=== PATIENT | female | born 1930 | race Caucasian/White ===

== ENCOUNTER 2017-06-23 09:41 | Inpatient (IN) | payer MEDICARE, OTHER ==
[2017-06-23 10:29] LABS: Urine Appearance Turbid; Urine Bacteria 3+; Urine Bilirubin Negative (NEGATIVE); Urine Blood 50 /ul (NEGATIVE); Urine Color Dark Yellow; Urine Ketone Negative (NEGATIVE); Urine Nitrite Positive (NEGATIVE); Urine Protein 30 mg/dL (NEGATIVE); Urine RBC >50 /hpf (0-5); Urine Urobilinogen Normal (NORMAL); Urine WBC >50 /hpf (0-5)
[2017-06-23 10:31] LABS: Hematocrit 39.5 % (37.0-47.0); Hemoglobin 13.4 gm/dL (12.5-16.0); Mean Cell Volume 91.4 fl (78-100); Mean Corpuscular Hgb Conc 33.9 g/dl (32-36); Mean Platelet Volume 9.8 fl (6.0-9.5); Neutrophil # 15.6 K/mm3 (1.3-6.0); Neutrophil % 82.8 % (42-75.0); Platelet Count 206 K/mm3 (150-450); Red Blood Count 4.32 M/mm3 (4.2-5.4); Red Cell Distribution Width 12.7 % (11.5-14.0); White Blood Count 18.8 K/mm3 (4.0-10.5)
--- NOTE | 2017-06-23 10:32 | ERNOTE ---
Neuro HPI ER Record Date of Service: 06/23/17 Presenting Symptoms: confusion Time Seen by Provider: 06/23/17 09:55 Source: patient, family Exam Limitations: dementia Immunizations: IMMUNIZATION HX Immunizations Up to Date Yes History of Influenza Vaccine Yes Hx Pneumococcal Vaccination Yes Allergies/Adverse Reactions: Allergies Allergy/AdvReac Type Severity Reaction Status Date / Time sulfur dioxide Allergy Verified 06/23/17 09:54 Home Medications: HOME MEDICATIONS Amlodipine Besylate 10 mg PO DAILY 06/23/17 [Last Taken Unknown] Atenolol [Tenormin] 100 mg PO DAILY 06/23/17 [Last Taken Unknown] Atorvastatin Calcium [Lipitor] 10 mg PO DAILY 06/23/17 [Last Taken Unknown] Levothyroxine Sodium [Synthroid] 112 mcg PO DAILY 06/23/17 [Last Taken Unknown] Memantine HCl [Namenda Xr] 28 mg PO DAILY 06/23/17 [Last Taken Unknown] - History of Present Illness Narrative: Pt. comes in with son and c/o confusion since 0600 this morning. Pt. son states that pt. is normally up at 0500 in the morning and this morning he went to meet her for coffee at 0600 and pt. was not awake and when her demurrage agent showed up they noted that pt. was more forgetful than usual and she was getting irritated with them and was unsure of who they were. Son also notes that she had a temp of 102 which he treated with Ibuprofen prior to arrival. Son states that pt. has dementia but is usually able to remember her family and with help is able to complete her daily activities. Pt. denies any pain or symptoms. Other family notes that she has been a little more lethargic for 4 days. Review of Systems - Review of Systems Constitutional: Present: fever, weakness, fatigue, malaise EYE: Present: no symptoms reported ENT: Present: no symptoms reported Respiratory: Present: no symptoms reported. Absent: shortness of breath, cough , wheezing Cardiology: Present: no symptoms reported. Absent: chest pain, palpitations, edema Gastrointestinal/Abdominal: Present: no symptoms reported. Absent: nausea, vomiting, diarrhea Genitourinary: Present: no symptoms reported. Absent: frequency, decreased urinary output Musculoskeletal: Present: no symptoms reported. Absent: back pain, joint pain Skin: Present: no symptoms reported Neurological: Present: other - forgetful increased from baseline. Absent: anxiety, depressed, headache, dizziness/light-headedness, weakness, numbness, tingling All Other Systems: All systems neg except as marked - Patient's Past Medical History Patient History - Medical: No pertinent hx Patient History - Cardiac/Respiratory: No pertinent hx Patient History - Cancer: Breast Patient History - Surgical Procedures: Appendectomy, Cholecystectomy, Other Patient History - Other: None LMP (females 10-50): post - Family History Mother Family History - Medical: Family History - Cardiac/Respiratory: Hypertension Father Family History - Medical: Family History - Cardiac/Respiratory: Myocardial Infarction - Social History Living Situations: home Abuse History: No History of abuse Psych History: No pertinent hx Smoking Status: Never smoker Alcohol Use: none Drug Use: none - Immunizations Immunizations Up to Date: Yes Hx Pneumococcal Vaccination: Yes History of Influenza Vaccine: Yes Physical Exam - Physical Exam General Appearance: Present: wd/wn, alert, no apparent distress Head Exam: Present: normal inspection, no evidence of injury Eye Exam: Normal inspection: bilateral, PERRL: bilateral, EOMI: bilateral Ears, Nose, Throat: Present: normal ENT inspection, normal pharynx Neck: Present: normal inspection, nontender. Absent: lymphadenopathy (R), lymphadenopathy (L) Respiratory: Present: no respiratory distress, normal breath sounds, no accessory muscle use, chest nontender, lungs clear Cardiovascular/Chest: Present: regular rate, rhythm, no murmur, normal peripheral pulses Gastrointestinal/Abdominal: Present: normal bowel sounds, nondistended, soft, no organomegaly, tenderness - suprapubic Back Exam: Present: normal inspection, normal range of motion, no CVA tenderness , no vertebral tenderness Extremity Exam: Present: normal inspection, non-tender, normal range of motion, no edema Neurological Exam: Present: alert, normal mood/affect, no motor/sensory deficits , disoriented to time, other - knows president but is unsure of date or time. Absent: motor weakness, disoriented to person, disoriented to place, disoriented to situation Ty Coma Scale - Assess Eye Opening: Spontaneous Motor: Obeys Commands Verbal: Confused - Total Coma Scale Total: 14 ED Progress - Results and Orders Patient's Lab Results:: I have reviewed the patient's lab results. - Vital Signs Patient's Vital Signs:: I have reviewed the patient's vital signs. Vital Signs: Vital Signs 06/23/17 09:50 Temperature 35.5 C L Pulse Rate 76 Respiratory 16 Rate Blood Pressure 111/53 O2 Sat by Pulse 95 Oximetry - Progress/Reassessment Chief Complaint: Altered Mental Status Departure Clinical Impression: Sepsis Qualifiers: Sepsis type: sepsis due to unspecified organism Qualified Code(s): A41.9 - Sepsis, unspecified organism UTI (urinary tract infection) Qualifiers: Urinary tract infection type: acute cystitis Hematuria presence: with hematuria Qualified Code(s): N30.01 - Acute cystitis with hematuria - Departure Disposition: [facility] Condition: Serious
[2017-06-23 10:43] LABS: Albumin * 3.1 gm/dl (3.4-5.0); Anion Gap 19.1 mmol/L (6.8-13.8); BUN/Creatinine Ratio 12.6 (9.0-21.6); Bilirubin, Total 1.4 mg/dL (0.0-1.1); Ca. Corrected For Albumin 9.1 mg/dL (8.4-10.2); Calcium * 8.7 mg/dL (7.9-10.9); Carbon Dioxide 19.4 mmol/L (24-32.6); Potassium 3.5 mmol/L (3.4-4.6); Total Protein 7.6 gm/dL (6.2-8.2)
[2017-06-23] MEDS: SODIUM CHLORIDE IV ONE ×2 (11:11→15:29)
[2017-06-23] MEDS ORDERED: PANTOPRAZOLE SODIUM 40 MG in NORMAL SALINE 100 ML IV SCH (12:00)
--- NOTE | 2017-06-23 13:24 | HP ---
Chief Complaint - Chief Complaint Date of Service: 06/23/17 Time of Service: 13:23 Chief Complaint: Patient was more confused when son went to drink coffee with her at 6 AM this morning. Temp 102 Fahrenheit in ER. Patient unable to complain[ H/O obtained from ER records]. History of Present Illness: Patient is a 87-year-old WF with a history of HTN, HLD, hypothyroidism, LT breast CA [S/P modified radical mastectomy 04/2016] who is brought to the ER by her son due to increasing confusion, a temp of 102F [ Rxed by ibuprofen] and decreased oral intake for the last few days. Significant labs in the ER : WBC 18.8, BUN/CR 21/1.67[ BUN/CR 13/1.05 on ]. Complained of decreased appetite, denies nausea, vomiting, abdominal pain, back pain, fevers/chills. - Patient's Past Medical History Additional info: PAST MEDICAL HISTORY: HTN, hyperlipidemia, osteopenia, LT breast cancer [ stage (IIIA T4, N0, M0) hormone receptor positive, HER-2 positive. RT shoulder pain. 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 Additional Info: PAST SURGICAL HISTORY: 1. Tonsillectomy 1940 2. Appendectomy 1944. 3. Modified radical mastectomy LT breast 04/28/2016. Patient History - Other: None LMP (females 10-50): post - Family History Mother Family History - Medical: - 70s, obesity, HTN Father Family History - Medical: - 60s,[place] - Social History Living Situations: alone Abuse History: No History of abuse Psych History: No pertinent hx Smoking Status: Never smoker Have you smoked in the past 12 months: No Alcohol Use: none Drug Use: none - Immunizations Immunizations Up to Date: Yes Hx Pneumococcal Vaccination: Yes History of Influenza Vaccine: Yes Review Of Systems (GEN) - Review of Systems Generalized/Overall Review: Present: Weakness, Fever, Fatigue Respiratory: Absent: Cough, Shortness of Breath Cardiac: Absent: Chest Pain, Palpitations Abdominal: Absent: Nausea, Vomiting Immunizations: IMMUNIZATION HX Immunizations Up to Date Yes History of Influenza Vaccine Yes Hx Pneumococcal Vaccination Yes Allergies/Adverse Reactions: Allergies Allergy/AdvReac Type Severity Reaction Status Date / Time sulfur dioxide Allergy Verified 06/23/17 15:59 Home Medications: HOME MEDICATIONS Amlodipine Besylate 10 mg PO DAILY 06/23/17 [Last Taken Unknown] Atenolol [Tenormin] 100 mg PO HS 06/23/17 [Last Taken Unknown] Atorvastatin Calcium [Lipitor] 10 mg PO DAILY 06/23/17 [Last Taken Unknown] Levothyroxine Sodium [Synthroid] 112 mcg PO DAILY 06/23/17 [Last Taken Unknown] Memantine HCl [Namenda Xr] 28 mg PO DAILY 06/23/17 [Last Taken Unknown] Cholecalciferol (Vitamin D3) [Vitamin D] 2,000 unit PO DAILY #100 capsule [Last Taken Unknown] Ciprofloxacin HCl [Cipro] 500 mg PO BID #6 tablet 06/27/17 [Last Taken Unknown] Exam - Exam Vital Signs: Vital Signs - Last Taken Temp 36.2 C L 06/23/17 12:18 Pulse 62 06/23/17 12:18 Resp 16 06/23/17 12:18 BP 109/52 06/23/17 12:18 Pulse Ox 95 06/23/17 12:18 Constitutional: Present: Elderly, Looks Younger than stated age - alert, oriented 1, in no acute distress. ENT Exam: Present: hearing grossly normal Eye Exam: bilateral eye: PERRL, EOMI Neck: Present: normal inspection, trachea midline Back Exam: Present: no CVA tenderness Breasts: Present: Exam deferred Respiratory: Present: lungs clear, normal breath sounds. Absent: no accessory muscle use Cardiovascular/Chest: Present: regular rate, rhythm. Absent: tachycardia Abdomen: Present: Normal bowel sounds, soft, nontender, nondistended Extremity: Present: normal inspection, no pedal edema Skin Exam: Present: normal color, warm/dry Appearance: Present: appropriate appearance, neat, impaired recent memory, impaired remote memory Eye contact: Present: cooperative, good eye contact, normal speech Diagnostic Studies: 06/23/17 10:13 BC 18.8 H Hgb 13.4 Hct 39.5 Plt Count 206 06/23/17 10:20 Plasma Sodium 135 Potassium 3.5 Chloride 99 Carbon Dioxide 19.4 L BUN 21 D Creatinine 1.67 H D Est GFR (Non-Af Amer) 31 L D Calcium Adj for Albumin 9.1 Total Bilirubin 1.4 H AST 19 ALT 16 L Alkaline Phosphatase 82 Total Protein 7.6 Albumin 3.1 L 06/23/17 06/23/17 10:20 13:45 Lactic Acid, Venous 2.5 H* 1.8 06/23/17 10:00 Urine Color Dark yellow Urine Appearance Turbid Ur Specific [place] 1.010 Urine Protein 30 H Urine Blood 50 H Urine Nitrate Positive H Ur Leukocyte Esterase 500 H Urine RBC >50 H Urine WBC >50 H Ur Epithelial Cells Food Cashier Urine Bacteria 3+ H Assessment/Plan - Narrative Narrative: 1. Probable sepsis due to UTI. Started on CTX 1 gm IV daily. Plugged into QSOFA criteria- patient has a 6% chance of sepsis[ due to hypotension and increasing confusion]. WBC 18.8, lactic acid 2.5. Check labs in a.m. Blood cultures done and pending. Patient given IV fluids per sepsis protocol. 2. Dehydration: BUN/CR 13/1.25 with a GFR of 53 ml/min.[06/15/17] and now at 21/1.67 with a GFR of 31 ml/min. Continue IV fluids at NS 100 mL / hr and check CMP on 06/24/17. 3. Hypertension: Continue amlodipine 10 mg in a.m. and atenolol 100 mg in p.m. may consider giving 50 mg in p.m. today if blood pressure is low. 4. Chronic medical conditions: Other chronic medical conditions including hypothyroidism, dementia most likely secondary to Alzheimer's type, LT breast cancer[ s/p modified radical mastectomy ],osteopenia, reviewed in stable.
[2017-06-23] MEDS: NORMAL SALINE 1,000 ML IV PRN (18:00)
[2017-06-23] MEDS ORDERED: ATENOLOL 50 MG TABLET PO SCH (21:00)
[2017-06-23] MEDS: ATENOLOL 50 MG TABLET PO SCH (21:45)
[2017-06-24 05:55] LABS: Hematocrit 35.1 % (37.0-47.0); Hemoglobin 11.9 gm/dL (12.5-16.0); Mean Cell Volume 92.6 fl (78-100); Mean Corpuscular Hemoglobin 31.4 pg (27-31); Mean Corpuscular Hgb Conc 33.9 g/dl (32-36); Mean Platelet Volume 10.2 fl (6.0-9.5); Neutrophil # 10.8 K/mm3 (1.3-6.0); Neutrophil % 78.9 % (42-75.0); Platelet Count 172 K/mm3 (150-450); Red Blood Count 3.79 M/mm3 (4.2-5.4); Red Cell Distribution Width 12.8 % (11.5-14.0); White Blood Count 13.7 K/mm3 (4.0-10.5)
[2017-06-24 06:14] LABS: Albumin * 2.5 gm/dl (3.4-5.0); Anion Gap 14.4 mmol/L (6.8-13.8); BUN/Creatinine Ratio 12.4 (9.0-21.6); Bilirubin, Total 0.8 mg/dL (0.0-1.1); Ca. Corrected For Albumin 9.2 mg/dL (8.4-10.2); Calcium * 8.3 mg/dL (7.9-10.9); Carbon Dioxide 21.9 mmol/L (24-32.6); Potassium 3.3 mmol/L (3.4-4.6); Total Protein 6.7 gm/dL (6.2-8.2)
[2017-06-24] MEDS: NORMAL SALINE 1,000 ML IV PRN ×2 (08:34→23:21)
[2017-06-24] MEDS: amLODIPine BESYLATE 10 MG TABLET PO SCH (08:35)
[2017-06-24] MEDS: LEVOTHYROXINE SODIUM 112 MCG TABLET PO SCH (08:35)
[2017-06-24] MEDS: ROSUVASTATIN CALCIUM 10 MG TABLET PO SCH (08:35)
[2017-06-24] MEDS ORDERED: POTASSIUM CHLORIDE 20 MEQ TABLET.SA PO ONE (10:42)
[2017-06-24] MEDS ORDERED: FLU VACC QS2017-18(6MOS UP)/PF 60 MCG/0.5 ML SYRINGE IM ONE (11:00)
[2017-06-24] MEDS: MEMANTINE HCL 28 MG PO SCH (15:46)
[2017-06-24] MEDS ORDERED: ACETAMINOPHEN 325 MG TABLET PO PRN (16:57)
[2017-06-24] MEDS ORDERED: ACETAMINOPHEN 325 MG TABLET ONE (17:04)
[2017-06-24] MEDS: ATENOLOL 50 MG TABLET PO SCH (20:02)
[2017-06-25] MEDS: LEVOTHYROXINE SODIUM 112 MCG TABLET PO SCH (07:43)
[2017-06-25] MEDS: amLODIPine BESYLATE 10 MG TABLET PO SCH (08:11)
[2017-06-25] MEDS: MEMANTINE HCL 28 MG PO SCH (08:13)
[2017-06-25] MEDS: ROSUVASTATIN CALCIUM 10 MG TABLET PO SCH (08:14)
[2017-06-25] MEDS: NORMAL SALINE 1,000 ML IV PRN (16:09)
[2017-06-25] MEDS: ATENOLOL 50 MG TABLET PO SCH (20:23)
[2017-06-26] MEDS: NORMAL SALINE 1,000 ML IV PRN (04:03)
[2017-06-26 05:58] LABS: Hematocrit 33.9 % (37.0-47.0); Hemoglobin 11.4 gm/dL (12.5-16.0); Mean Cell Volume 90.6 fl (78-100); Mean Corpuscular Hemoglobin 30.5 pg (27-31); Mean Corpuscular Hgb Conc 33.6 g/dl (32-36); Mean Platelet Volume 10.1 fl (6.0-9.5); Platelet Count 221 K/mm3 (150-450); Red Blood Count 3.74 M/mm3 (4.2-5.4); Red Cell Distribution Width 12.6 % (11.5-14.0); White Blood Count 9.1 K/mm3 (4.0-10.5)
[2017-06-26 06:03] LABS: Total Cells Counted 100
[2017-06-26 06:06] LABS: Anion Gap 14.6 mmol/L (6.8-13.8); BUN/Creatinine Ratio 10.2 (9.0-21.6); Calcium * 8.3 mg/dL (7.9-10.9); Carbon Dioxide 20.6 mmol/L (24-32.6); Potassium 3.2 mmol/L (3.4-4.6)
[2017-06-26 06:24] LABS: Basophil 1 % (0-1); Eosinophil 1 % (0-3); Immature Granulocyte 2 (0-1); Lymphocyte 27 % (20-51); Monocyte 4 % (0-9); Neutrophil 65 % (42-75); Neutrophil # 5.9 K/mm3 (1.3-6.0)
[2017-06-26 06:25] LABS: Platelet Estimate Normal (NORMAL); RBC Morphology Normal (NORMAL)
[2017-06-26] MEDS ORDERED: POTASSIUM CHLORIDE 20 MEQ TABLET.SA PO ONE (06:38)
[2017-06-26] MEDS: LEVOTHYROXINE SODIUM 112 MCG TABLET PO SCH (07:37)
[2017-06-26] MEDS: POTASSIUM CHLORIDE 10 MEQ in NORMAL SALINE 1,000 ML IV SCH ×2 (07:40→22:40)
[2017-06-26] MEDS: MEMANTINE HCL 28 MG PO SCH (09:30)
[2017-06-26] MEDS: ROSUVASTATIN CALCIUM 10 MG TABLET PO SCH (09:30)
[2017-06-26] MEDS: amLODIPine BESYLATE 10 MG TABLET PO SCH (09:30)
--- NOTE | 2017-06-26 15:34 | PN ---
Subjective - Date and Time Seen Date: 06/24/17 Time: 10:45 Subjective Narrative: Patient seen and examined at bedside. No acute issues overnight. Patient denies any new issues or concerns this AM. Patient's son is present at bedside and states that his mother is much improved since admission. Objective - Review of Systems Generalized/Overall Review: Reports: Weakness, Fatigue EENTM: Reports: No Symptoms Reported Respiratory: Reports: No Symptoms Reported Cardiac: Reports: No Symptoms Reported Abdominal: Reports: No Symptoms Reported Genitourinary Symptoms: Reports: No Symptoms Reported Musculoskeletal Complaints: Reports: No Symptoms Reported Neurological: Reports: No Symptoms Reported Skin: Reports: No Symptoms Reported Endocrine: Reports: No Symptoms Reported Misc: All systems neg except as marked - Vitals Vitals: Last Vital Signs Temp 36.5 C 06/26/17 14:36 Pulse 80 06/26/17 14:36 Resp 20 06/26/17 14:36 BP 137/65 06/26/17 14:36 Pulse Ox 97 06/26/17 14:36 - Abnormal Lab Findings Abnormal Lab Findings: Abnormal Lab Results 06/26/17 06/26/17 Range/Units 05:45 05:45 RBC 3.74 L (4.2-5.4) M/mm3 Hgb 11.4 L (12.5-16.0) gm/dL Hct 33.9 L (37.0-47.0) % MPV 10.1 H (6.0-9.5) fl Immature Granulocytes 2 H (0-1) Potassium 3.2 L (3.4-4.6) mmol/L Chloride 110 H (97-106) mmol/L Carbon Dioxide 20.6 L (24-32.6) mmol/L Anion Gap 14.6 H (6.8-13.8) mmol/L - Exam Constitutional: Present: Alert, Cooperative, No distress, Elderly ENT Exam: Present: moist mucous membranes Respiratory: Present: lungs clear, normal breath sounds, no respiratory distress , no accessory muscle use Cardiovascular/Chest: Present: regular rate, rhythm, systolic murmur Abdomen: Present: soft, nontender, nondistended Extremity: Present: normal inspection Skin Exam: Present: normal color, warm/dry, no cyanosis Neurologic: Present: alert, normal mood/affect Assessment/Plan Plan Narrative: Patient admitted with sepsis secondary to UTI. She was also found to be bacteremic with final C&S pending. Urine culture growing E.Coli which is sensitive to Rocephin so we will continue Rocephin for now. Adjust antibiotics if necessary based on final blood culture C&S report. - Problems/Diagnosis (1) Bacteremia Problem: Acute (2) Sepsis Problem: Acute Qualifiers: Sepsis type: Escherichia coli Qualified Code(s): A41.51 - Sepsis due to Escherichia coli [E. coli] (3) UTI (urinary tract infection) Problem: Acute Qualifiers: Urinary tract infection type: acute cystitis Hematuria presence: with hematuria Qualified Code(s): N30.01 - Acute cystitis with hematuria
--- NOTE | 2017-06-26 15:35 | PN ---
Subjective - Date and Time Seen Date: 06/25/17 Time: 12:50 Subjective Narrative: Patient seen and examined at bedside. No acute issues overnight. Patient denies any new issues or concerns this AM. Patient's friend present at bedside this AM. Objective - Review of Systems Generalized/Overall Review: Reports: Weakness, Fatigue EENTM: Reports: No Symptoms Reported Respiratory: Reports: No Symptoms Reported Cardiac: Reports: No Symptoms Reported Abdominal: Reports: No Symptoms Reported Genitourinary Symptoms: Reports: No Symptoms Reported Musculoskeletal Complaints: Reports: No Symptoms Reported Neurological: Reports: No Symptoms Reported Skin: Reports: No Symptoms Reported Endocrine: Reports: No Symptoms Reported Misc: All systems neg except as marked - Vitals Vitals: Last Vital Signs Temp 36.5 C 06/26/17 14:36 Pulse 80 06/26/17 14:36 Resp 20 06/26/17 14:36 BP 137/65 06/26/17 14:36 Pulse Ox 97 06/26/17 14:36 - Abnormal Lab Findings Abnormal Lab Findings: Abnormal Lab Results 06/26/17 06/26/17 Range/Units 05:45 05:45 RBC 3.74 L (4.2-5.4) M/mm3 Hgb 11.4 L (12.5-16.0) gm/dL Hct 33.9 L (37.0-47.0) % MPV 10.1 H (6.0-9.5) fl Immature Granulocytes 2 H (0-1) Potassium 3.2 L (3.4-4.6) mmol/L Chloride 110 H (97-106) mmol/L Carbon Dioxide 20.6 L (24-32.6) mmol/L Anion Gap 14.6 H (6.8-13.8) mmol/L - Exam Constitutional: Present: Alert, Cooperative, No distress ENT Exam: Present: moist mucous membranes Respiratory: Present: lungs clear, normal breath sounds, no respiratory distress , no accessory muscle use Cardiovascular/Chest: Present: regular rate, rhythm, systolic murmur Abdomen: Present: soft, nontender, nondistended Skin Exam: Present: normal color, warm/dry Assessment/Plan Plan Narrative: Patient admitted with sepsis secondary to UTI. She was also found to be bacteremic with final C&S pending. Urine culture growing E.Coli which is sensitive to Rocephin so we will continue Rocephin for now. Adjust antibiotics if necessary based on final blood culture C&S report. - Problems/Diagnosis (1) Bacteremia Problem: Acute (2) Sepsis Problem: Acute Qualifiers: Sepsis type: Escherichia coli Qualified Code(s): A41.51 - Sepsis due to Escherichia coli [E. coli] (3) UTI (urinary tract infection) Problem: Acute Qualifiers: Urinary tract infection type: acute cystitis Hematuria presence: with hematuria Qualified Code(s): N30.01 - Acute cystitis with hematuria
--- NOTE | 2017-06-26 19:06 | PN ---
Subjective - Date and Time Seen Date: 06/26/17 Time: 18:59 Subjective Narrative: patient seen at 8.30 am at bedside. ON O2 at 2L as her sats dropped to 86% during night. denies sob, chest pain. had low grade temp for the last two days. Objective - Review of Systems Generalized/Overall Review: Denies: Weakness, Fatigue Respiratory: Denies: Cough, Shortness of Breath Cardiac: Denies: Chest Pain, Edema Abdominal: Denies: Nausea, Vomiting - Vitals Vitals: Vital Signs Temp 36.4 C L 06/26/17 18:00 Pulse 81 06/26/17 18:00 Resp 18 06/26/17 18:00 BP 146/62 06/26/17 18:00 Pulse Ox 97 06/26/17 18:00 - Abnormal Lab Findings Abnormal Lab Findings: Laboratory Tests 06/26/17 05:45 WBC 9.1 D Hgb 11.4 L Hct 33.9 L Plt Count 221 Neutrophils % (Manual) 65 Lymphocytes % (Manual) 27 06/26/17 05:45 Plasma Sodium 142 Potassium 3.2 L Chloride 110 H Carbon Dioxide 20.6 L BUN 9 Creatinine 0.88 Est GFR (Non-Af Amer) 65 D BUN/Creatinine Ratio 10.2 Calcium 8.3 Microbiology 06/23/17 10:20 Blood Blood Culture - Final Escherichia Coli 06/23/17 10:00 Urine,Voided Urine Culture - Final Escherichia Coli - Exam Constitutional: Present: Elderly, Obese - alert and oriented x 1 ENT Exam: Present: hearing grossly normal Neck: Present: normal inspection, trachea midline Breasts: Present: Exam deferred Respiratory: Present: lungs clear, normal breath sounds, no accessory muscle use Cardiovascular/Chest: Present: regular rate, rhythm, no chest tenderness. Absent: tachycardia Abdomen: Present: Normal bowel sounds, soft, nontender Extremity: Present: non-tender, normal inspection, no pedal edema Skin Exam: Present: warm/dry, pallor Appearance: Present: impaired recent memory, impaired remote memory. Absent: appropriate insight Eye contact: Present: cooperative, good eye contact Assessment/Plan Plan Narrative: 1. Sepsis due to Ecoli in urine and Blood: Patient had hypotension with systolic below 100 mm Hg, increased confusion [ baseline dementia]; however was not admitted ICU and did not have an increase in R.R. Transient elevation in LFTs [which resolved] most likely secondary to hypotension. Currently being treated with ceftriaxone 1 g IV daily. Improvement seen in BUN/CR due to IV fluids. D/C IV fluids today. 2. Bacteremia secondary to Escherichia coli. Blood culture positive for Escherichia coli. Sensitive to a variety of antibiotics. UCS positive for Escherichia coli. Continue ceftriaxone till 2016. 3. Chronic medical problems: HTN [on amlodipine 10 mg in a.m. and atenolol 100 mg in p.m.], hypothyroidism, hyperlipidemia, dementia secondary to Alzheimer's type, LT breast cancer [S/P modified radical mastectomy on 04/28/2016] reviewed and stable. 4. Discharge planning: Patient will receive ceftriaxone IV on 06/27/17 and will be discharged on oral antibiotics for 3 more days. Discussed with family[son GELY was present]. Voices understanding.
[2017-06-26] MEDS ORDERED: POTASSIUM CHLORIDE 20 MEQ TABLET.SA ONE (22:42)
[2017-06-26] MEDS: POTASSIUM CHLORIDE 20 MEQ TABLET.SA PO SCH (22:45)
[2017-06-26] MEDS: ATENOLOL 50 MG TABLET PO SCH (22:47)
[2017-06-27] MEDS ORDERED: POTASSIUM CHLORIDE 10 MEQ TABLET.SA ONE (02:28)
[2017-06-27] MEDS: POTASSIUM CHLORIDE 20 MEQ TABLET.SA PO SCH (02:32)
[2017-06-27 06:31] LABS: Hematocrit 32.6 % (37.0-47.0); Hemoglobin 11.2 gm/dL (12.5-16.0); Mean Cell Volume 90.6 fl (78-100); Mean Corpuscular Hemoglobin 31.1 pg (27-31); Mean Corpuscular Hgb Conc 34.4 g/dl (32-36); Platelet Count 245 K/mm3 (150-450); Red Cell Distribution Width 12.6 % (11.5-14.0); White Blood Count 8.3 K/mm3 (4.0-10.5)
[2017-06-27 06:32] LABS: Total Cells Counted 100
[2017-06-27 06:36] LABS: Atypical (Reactive) Lymph 4 % (0-2); Band 2 % (0-2.0); Eosinophil 2 % (0-3); Lymphocyte 24 % (20-51); Monocyte 1 % (0-9); Neutrophil 67 % (42-75); Neutrophil # 5.6 K/mm3 (1.3-6.0)
[2017-06-27 06:37] LABS: Platelet Estimate Normal (NORMAL)
[2017-06-27 06:38] LABS: RBC Morphology Normal (NORMAL)
[2017-06-27 07:00] LABS: Anion Gap 14.7 mmol/L (6.8-13.8); Calcium * 8.4 mg/dL (7.9-10.9); Carbon Dioxide 21.4 mmol/L (24-32.6); Potassium 4.1 mmol/L (3.4-4.6)
[2017-06-27] MEDS: amLODIPine BESYLATE 10 MG TABLET PO SCH (09:09)
[2017-06-27] MEDS: LEVOTHYROXINE SODIUM 112 MCG TABLET PO SCH (09:09)
[2017-06-27] MEDS: ROSUVASTATIN CALCIUM 10 MG TABLET PO SCH (09:09)
[2017-06-27] MEDS: MEMANTINE HCL 28 MG PO SCH (09:09)
[2017-06-27 09:34] LABS: Albumin * 2.4 gm/dl (3.4-5.0); Bilirubin, Total 0.7 mg/dL (0.0-1.1); Ca. Corrected For Albumin 9.4 mg/dL (8.4-10.2); Total Protein 6.4 gm/dL (6.2-8.2)
[2017-06-27 10:35] VITALS: BP 150/76
--- NOTE | 2017-06-27 11:33 | DS ---
(1) Sepsis Diagnosis(s): Presented with hypotension with systolic below 100, increased confusion. Blood and urine cultures positive for Escherichia coli. With transient elevation and LFTs most likely secondary to hypotension. Problem: Acute Qualifiers: Sepsis type: Escherichia coli Qualified Code(s): A41.51 - Sepsis due to Escherichia coli [E. coli] (2) Bacteremia due to Escherichia coli Problem: Acute (3) HTN (hypertension) Problem: Chronic Qualifiers: Hypertension type: essential hypertension Qualified Code(s): I10 - Essential (primary) hypertension (4) Hyperlipidemia Problem: Chronic Qualifiers: Hyperlipidemia type: unspecified Qualified Code(s): E78.5 - Hyperlipidemia , unspecified (5) Breast cancer Diagnosis(s): LT breast cancer[stage IIIA, T4, N0, M0, hormone receptor positive, HER 2 positive; LT modified radical mastectomy 04/28/2016. Problem: Inactive Qualifiers: Laterality: left (6) Dementia Diagnosis(s): Most likely secondary to Alzheimer's disease Problem: Chronic Qualifiers: Alzheimer's disease onset: unspecified onset Dementia behavioral disturbance: without behavioral disturbance (7) Hypothyroidism Problem: Acute Qualifiers: Hypothyroidism type: unspecified Qualified Code(s): E03.9 - Hypothyroidism , unspecified Description of Stay: DATE OF ADMISSION: 06/23/17. DATE OF DISCHARGE: 06/27/17. DIAGNOSTICS: NONE. DISCHARGE SUMMARY: Louise Narayan is a 87-year-old WF with a history of HTN, HLD, hypothyroidism, dementia most likely secondary to Alzheimer's disease, LT breast CA [LT modified radical mastectomy 04/28/2016], who was who lives at home, who was brought to the ER by her son due to increasing confusion, a temp of 102F since morning and decreased oral intake for the last few days. She was found to have a BP of 97/49 shortly after admission. Significant labs in the ER WBC 18.8, BUN/CR 21/1.67[B UN/CR 13/1.05 on 06/15/17]. After blood cultures were taken the patient was started on ceftriaxone 1 g IV daily and given IV fluids per sepsis protocol. Patient had a s transient elevation of LFTs [bilirubin 1.4 and AST 61 which trended down] most likely related to hypotension. Both blood cultures and urine cultures were positive for Escherichia coli sensitive to a variety of antibiotics. Patient and a low- grade temp for the next few days and her WBC trended down towards normal. Confusion gradually improved. BUN/CR normalized with IV fluids at the time of discharge with improvement in GFR. Patient was given DVT prophylaxis in the form of an enoxaparin 40mg SUBQ daily. Patient is being discharged in a stable condition on 06/27/17 on oral ciprofloxacin 500 mg twice a day for 3 additional days. A total of 40 minutes was spent in reconciliation of meds, coordination of care , discharge instructions, preparation and dictation of discharge summary. Procedures Performed: none Results and Findings: Laboratory Tests 06/23/17 06/24/17 06/27/17 10:13 05:35 06:25 WBC 18.8 H 13.7 H D 8.3 Hgb 13.4 11.9 L 11.2 L Hct 39.5 35.1 L 32.6 L Plt Count 206 172 245 06/23/17 06/24/17 06/27/17 10:20 05:35 06:25 Plasma Sodium 135 141 142 Potassium 3.5 3.3 L 4.1 D Chloride 99 108 H 110 H Carbon Dioxide 19.4 L 21.9 L 21.4 L BUN 21 D 17 7 Creatinine 1.67 H D 1.37 0.88 Est GFR (Non-Af Amer) 31 L D 65 Random Glucose 154 H 114 H 100 Calcium Adj for Albumin 9.1 9.2 9.4 Total Bilirubin 1.4 H 0.8 0.7 AST 19 61 H 28 ALT 16 L 17 L 26 Alkaline Phosphatase 82 77 87 Total Protein 7.6 6.7 6.4 Albumin 3.1 L 2.4 L 06/23/17 06/23/17 06/23/17 10:20 13:45 16:58 Lactic Acid, Venous 2.5 H* 1.8 1.6 Microbiology 06/23/17 10:20 Blood Blood Culture - Final Escherichia Coli 06/23/17 10:00 Urine,Voided Urine Culture - Final Escherichia Coli Discharge Disposition: Home self care Disposition: Home self-care Condition: Undetermined Discharge Activity: Activity as tolerated Discharge Diet: Low salt, Low fat/chol, High Fiber Referrals: Jorge Carreon MD [Primary Care Provider] - Additional Patient Instructions (free text): Please make TCM appointment at discharge, if applicable. Thank you! Catie @ [phone]. Yogurt 4-6 ounces twice a day[for calcium intake and to prevent UTIs] Increase water intake. Levothyroxine to be taken on an empty stomach with a full glass of water and not with other medications. Please call in ciprofloxacin to the appropriate pharmacy as it could not be eprescribed as the name of the pharmacy was not there. NEW MEDICATIONS: 1. Vitamin D3 2000 units daily with food.[New OTC medication]. 2. Ciprofloxacin 500 mg by mouth twice a day for 3 days. MEDICATIONS DISCONTINUED: None. Appointment with Dr. Atwood in 7-10 days on 07-05-17 @ 10:45am. Prescriptions (Any new or edited meds): Cholecalciferol (Vitamin D3) [Vitamin D] 2,000 unit PO DAILY #100 capsule Ciprofloxacin HCl [Cipro] 500 mg PO BID #6 tablet Complete Home Medications List: Complete Home Medication List: Amlodipine Besylate 10 mg PO DAILY 06/23/17 Atenolol [Tenormin] 100 mg PO HS 06/23/17 Atorvastatin Calcium [Lipitor] 10 mg PO DAILY 06/23/17 Levothyroxine Sodium [Synthroid] 112 mcg PO DAILY 06/23/17 Memantine HCl [Namenda Xr] 28 mg PO DAILY 06/23/17 Cholecalciferol (Vitamin D3) [Vitamin D] 2,000 unit PO DAILY #100 capsule Ciprofloxacin HCl [Cipro] 500 mg PO BID #6 tablet 06/27/17
== END 2017-06-27 13:14 | disposition home or self-care (01) | DRG 872 ==
LOC: ER 09:41 → MS 11:30
PROVIDERS: ADMIT Internal Medicine; ATTEND Internal Medicine
DX: A41.51 Sepsis due to Escherichia coli [E. coli] (principal); N39.0 Urinary tract infection, site not specified; B96.20 Unspecified Escherichia coli [E. coli] as the cause of diseases classified elsewhere; I10 Essential (primary) hypertension; E78.5 Hyperlipidemia, unspecified; G30.9 Alzheimer's disease, unspecified; F02.80 Dementia in other diseases classified elsewhere, unspecified severity, without behavioral disturbance, psychotic disturbance, mood disturbance, and anxiety; E03.9 Hypothyroidism, unspecified; Z85.3 Personal history of malignant neoplasm of breast; Z90.12 Acquired absence of left breast and nipple; Z23 Encounter for immunization
CPT/HCPCS: 36415; 80048; 80053; 81001; 83605; 85007; 85025; 87040; 87077; 87086; 87186; 90686; 96365; 96366; 99285; G0008